=== PATIENT | female | born 1960 | race Caucasian/White ===

== ENCOUNTER → 2016-12-12 | Outpatient (CLI) | payer BC ==
--- NOTE | 2016-12-12 10:55 | WWHP ---
DATE OF SERVICE: 12/12/2016 CHIEF COMPLAINT: The patient is here for her routine gynecologic exam and mammogram. HPI: This is a 56-year-old G5, P3-0-2-3 with an LMP of 2011. She is status post endometrial ablation in approximately 2011. She has been amenorrheic since then. She does have occasional hot flashes, but they are not very bad. She says it has been close to 5 years since her last pelvic exam and close to 10 years since her last mammogram. She denies any current vaginal bleeding and is without complaints. PAST MEDICAL HISTORY: Seasonal allergies and sinus problems. MEDICATIONS: Flonase p.r.n. ALLERGIES: No known drug allergies. PAST SURGICAL HISTORY: Bilateral breast implants in 1996 and endometrial ablation in 2011. PAST OB HISTORY: Two vaginal deliveries and 2 spontaneous abortions. PAST STRATEGIC BUYER HISTORY: She is status post endometrial ablation in 2011 and has no history of STDs. SOCIAL HISTORY: She quit smoking in 2008 and has about 0 to 2 alcoholic drinks per week and denies drug use. She is in the process of getting a divorce but has not been sexually active for about 5 years. She is not seeing anybody at this time. 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 FAMILY HISTORY: She has an aunt who had some type of cancer that was widespread, but she is not certain of the primary. Mother had ME and COPD. Father also had an ME. REVIEW OF SYSTEMS: Weight has been stable. She denies respiratory, cardiac, or GI problems. PHYSICAL EXAM: Blood pressure 121/82. Height 5 feet 4 inches. Weight 133 pounds. Temperature 97.6, pulse 75. This is a well-developed, well-nourished white female who is alert and oriented x3 in no acute distress. HEENT is within normal limits. NECK: Supple without mass or thyromegaly. CHEST AND LUNGS: Clear to auscultation. HEART: Regular rate and rhythm. Breasts are without mass or discharge and are consistent with bilateral implants. Axillary exam is negative for adenopathy. BACK: Negative for CVA tenderness. ABDOMEN: Soft, nontender, without palpable masses. PELVIC EXAM: External genitalia reveals mild atrophy without lesions. Cervix and vagina reveal mild atrophy without lesions. There is no evidence of prolapse. The uterus is midposition, nongravid size and nontender. There are no palpable adnexal masses or tenderness. Rectovaginal exam is negative for mass or tenderness and is negative for occult blood. EXTREMITIES: Nontender. IMPRESSION: 1. A 56-year-old who is status post endometrial ablation with resulting amenorrhea who is probably postmenopausal. 2. Normal gynecologic exam. PLAN: 1. Pap smear was performed. 2. Self breast examination was discussed. 3. Mammogram will be done today. 4. Osteoporosis prevention was discussed. 5. I have recommended 1200 mg of calcium daily with diet and if needed a supplement. I have also recommended 800 units of vitamin D daily. She is to spread out the calcium during the day. I have also recommended regular exercise. 6. She will return in one year.
--- NOTE | 2016-12-13 10:04 | MM ---
Reason for exam: screening (asymptomatic). History: Implants in both breasts, 1995. Physical Findings: A clinical breast exam by your physician is recommended on an annual basis and results should be correlated with mammographic findings. MG Screening Mammo Implant/CAD Bilateral CC, MLO, and ID view(s) were taken. No prior studies available for comparison. The breast tissue is heterogeneously dense. This may lower the sensitivity of mammography. There is no dominant lesion. Bilateral retropectoral implants. ASSESSMENT: Benign, BI-RAD 2 RECOMMENDATION: Routine screening mammogram of both breasts in 1 year.
--- NOTE | 2016-12-19 20:48 | WWPLE ---
December 19, 2016 RE: Inez Kimberly Salma Dear Dr. Adam, I had the pleasure seeing your patient Kimberly Wiley in the office on 12/12/16. As you know, she is a 56-year-old female who presented for her routine gynecologic exam. She is probably postmenopausal and has been amenorrheic since her endometrial ablation. Her gynecologic exam was unremarkable. Pap smear was negative and her mammogram was benign. Thank you for allowing me to participate in the care of your patient. Please do not hesitate to call if you have any questions. Sincerely, Obdulio Johnson M.D. JENY
== END | disposition home or self-care (01) ==
LOC: WWCWWP 09:15
PROVIDERS: ATTEND Obstetrics & Gynecology
DX: Z12.31 Encounter for screening mammogram for malignant neoplasm of breast (principal)

== ENCOUNTER → 2020-05-18 | Outpatient (CLI) | payer OTHER | END | disposition home or self-care (01) | LOC: CPPFTMAIN 13:28 | PROVIDERS: ATTEND Family Medicine | DX: J44.9 Chronic obstructive pulmonary disease, unspecified (principal) | CPT/HCPCS: 94060; 94726; 94729 ==

== ENCOUNTER → 2020-06-01 | Outpatient (CLI) | payer OTHER ==
--- NOTE | 2020-06-01 17:31 | XR ---
EXAMINATION TYPE: XR chest 2V DATE OF EXAM: 06/01/2020 COMPARISON: NONE HISTORY: Chronic cough for one year TECHNIQUE: Frontal and lateral views of the chest are obtained. FINDINGS: There is no focal air space opacity, pleural effusion, or pneumothorax seen. The cardiac silhouette size is within normal limits. The osseous structures are intact. IMPRESSION: No acute cardiopulmonary process.
== END | disposition home or self-care (01) ==
LOC: RAD 15:59
PROVIDERS: ATTEND Family Medicine
DX: J18.9 Pneumonia, unspecified organism (principal); J45.909 Unspecified asthma, uncomplicated
CPT/HCPCS: 71046